=== PATIENT | female | born 1970 | race Caucasian/White ===

== ENCOUNTER 2017-03-20 23:23 | Inpatient (IN) | payer BC ==
[~2017-03-20] VITALS: Ht 167.6 cm; Wt 76.4 kg
[~2017-03-20 23:23] MED LIST: NO HOME MEDICATIONS; NORCO 325 MG-7.1 TAB PO; ROXICODONE 55 MG/TAB PO
[2017-03-21] VITALS (14 sets, daily range): BP systolic 91–109; BP diastolic 51–70; PULSE 61–98; TEMP 97.7–99.6
[2017-03-21 00:16] LABS: MEAN CELL VOLUME 94 fl (80.0-100.0); MEAN CORPUSCULAR HGB CONC 34 g/dl (33.0-37.0); MEAN PLATELET VOLUME 9.8 fl (7.4-10.4); PLATELET COUNT 292 K/mm3 (130-400); RED BLOOD COUNT 3.68 M/mm3 (4.10-5.30); REDCELL DISTRIBUTION WIDTH-CV 13.6 % (11.5-14.5)
[2017-03-21 00:21] LABS: ADD PATHOLOGY DIFF REVIEW NO; HEMATOCRIT 34.6 % (37.0-47.0); HEMOGLOBIN 11.7 g/dl (12.5-16.0); MEAN CORPUSCULAR HEMOGLOBIN 32 pg (27.0-31.0); WHITE BLOOD COUNT 25.6 K/mm3 (4.8-10.8)
[2017-03-21 00:26] LABS: ADJUSTED CALCIUM 9.4 mg/dL (8.4-10.2); ALBUMIN 3.5 gm/dL (3.5-5.0); BILIRUBIN,TOTAL 0.8 mg/dL (0.0-1.0); CREATININE, serum 0.72 mg/dL (0.52-1.25); POTASSIUM 3.8 mmol/L (3.4-5.0); TOTAL PROTEIN 6.4 gm/dL (6.4-8.2)
[2017-03-21 00:30] LABS: BAND 38 % (0-10); NEUTROPHILS 52 % (42.0-75.2); PLATELET ESTIMATE NORMAL (NORMAL); TOTAL CELLS COUNTED 100
[2017-03-21 00:39] LABS: PH 5 (5-8); SQUAMOUS EPITHELIAL 0-2 /hpf; URINE APPEARANCE Cloudy; URINE BACTERIA Moderate /hpf; URINE BILIRUBIN Negative (NEGATIVE); URINE BLOOD 2+ (NEGATIVE); URINE COLOR Yellow; URINE GLUCOSE Negative (NEGATIVE); URINE KETONE Negative (NEGATIVE); URINE UROBILINOGEN Negative (NEGATIVE)
[2017-03-21 00:40] LABS: URINE WBC >50 /hpf
[2017-03-21] MEDS ORDERED: PROZAC40 MG PO (01:48)
[2017-03-22 01:34] VITALS: BP 126/65; PULSE 73; TEMP 98.3
[2017-03-22 05:35] VITALS: BP 139/67; PULSE 68; TEMP 98.2
[2017-03-22 10:12] VITALS: BP 117/66; PULSE 54; TEMP 98.2
== END 2017-03-22 11:50 | disposition home or self-care (01) | DRG 872 ==
LOC: COL.ER 23:23 → SURG 03-21 01:32
PROVIDERS: Family Medicine; Urology
PROC: 0T778DZ Dilation of Left Ureter with Intraluminal Device, Via Natural or Artificial Opening Endoscopic (ICD-10-PCS; principal; 2017-03-21 06:00)
PROC: BT1F1ZZ Fluoroscopy of Left Kidney, Ureter and Bladder using Low Osmolar Contrast (ICD-10-PCS; 2017-03-21 06:00)
DX: A41.9 Sepsis, unspecified organism (principal); N13.6 Pyonephrosis; F17.210 Nicotine dependence, cigarettes, uncomplicated
CPT/HCPCS: C1769; C2617; J0696; J1100; J1170; J1644; J1885; J2270; J2405; J2543; J2704; J2765; J3010; J7030; J7050; J7120; Q9967

== ENCOUNTER 2017-03-30 08:57 | Day surgery (SDC) | payer BC ==
[~2017-03-30] VITALS: Ht 165.1 cm; Wt 73.0 kg
[~2017-03-30 08:57] MED LIST changes: +PROZAC40 MG PO
[2017-03-30 09:40] VITALS: BP 117/74; PULSE 72; TEMP 97.6
[2017-03-30 13:25] VITALS: BP 121/73; PULSE 73; TEMP 97.4
[2017-03-30 13:40] VITALS: BP 112/78; PULSE 71
[2017-03-30 13:50] VITALS: TEMP 98.1
[2017-03-30 14:15] VITALS: BP 129/78; PULSE 80
[2017-03-30] MEDS ORDERED: NORCO 325 MG-51 TAB PO (14:16)
[2017-03-30] MEDS ORDERED: PYRIDIUM 100MG100 MG (14:16)
== END 2017-03-30 15:13 | disposition home or self-care (01) ==
LOC: SDCO 08:57
DX: N20.1 Calculus of ureter (principal); F17.210 Nicotine dependence, cigarettes, uncomplicated; J44.9 Chronic obstructive pulmonary disease, unspecified; G47.33 Obstructive sleep apnea (adult) (pediatric); F31.9 Bipolar disorder, unspecified; R10.9 Unspecified abdominal pain
CPT/HCPCS: C1769; J0690; J1100; J1885; J1940; J2405; J2704; J3010; J7120